=== PATIENT | female | born 1960 | race Caucasian/White ===

== ENCOUNTER 2017-06-18 17:22 | Emergency (ER) | payer BC ==
[2017-06-18] MEDS ORDERED: HYDROmorphone 0.5 MG/0.5 ML Syringe IVPUSH ONE (17:33)
[2017-06-18] MEDS ORDERED: Metoclopramide 10 MG/2 ML SDV IVPUSH ONE (17:33)
--- NOTE | 2017-06-18 17:34 | EDM.PDOC ---
ED HPI GENERAL MEDICAL PROBLEM - General Chief Complaint: Trauma Stated Complaint: [facility] Time Seen by Provider: 06/18/17 17:29 Source of Information: Reports: Patient, EMS Notes Reviewed History Limitations: Reports: No Limitations - History of Present Illness INITIAL COMMENTS - FREE TEXT/NARRATIVE: 57-year-old female reports that she was up on top of a ladder 6 or 7 feet off the ground when she fell from the ladder. She scraped up her left medial arm on the way to the ground on a branch of the tree. Landed hard on her legs injuring her left ankle and right tib-fib knee area. Unable to weight-bear. She was on the ground for good hour before anybody found her. Paramedics have started an IV and given her 1 mg of Dilaudid en route to the hospital. She denies losing consciousness and has no pain in her head or neck. Denies any pain in her back or hip or pelvis. She has pain to the medial aspect of her left forearm where she scraped it on the branch on the way down. Severe pain right knee proximal tib-fib left ankle. She believes her tetanus toxoid is good until 2018. Onset: Today Onset Date: 06/18/17 Onset Time: 15:45 Duration: Minutes: Location: Reports: Upper Extremity, Left, Lower Extremity, Left (Primarily left ankle), Lower Extremity, Right (Right tib-fib and knee area primarily) Quality: Reports: Ache, Burning, Throbbing Severity: Moderate Improves with: Reports: None Worsens with: Reports: Movement (Particularly of the right leg.) Context: Reports: Trauma Associated Symptoms: Reports: No Other Symptoms. 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) (Did receive Dilaudid 1 mg IV by paramedics staff en route to the hospital.) Right Knee Pain Score (Numeric/FACES): 8 Left Ankle Pain Score (Numeric/FACES): 2 - Related Data Allergies Allergy/AdvReac Type Severity Reaction Status Date / Time No Known Allergies Allergy Verified 06/18/17 17:37 Home Meds: Home Meds Escitalopram Oxalate [Escitalopram Oxalate] 10 mg PO DAILY 06/18/17 [History] Past Medical History Psychiatric History: Reports: Anxiety, Depression Social & Family History - Living Situation & Occupation Living situation: Reports: Occupation: Employed Review of Systems - Review of Systems Review Of Systems: See Below Constitutional: Reports: No Symptoms Eyes: Reports: No Symptoms Ears: Reports: No Symptoms Nose: Reports: No Symptoms Mouth/Throat: Reports: No Symptoms, Other Respiratory: Reports: Other. Denies: Shortness of Breath (Denies any dental injuries.) Cardiovascular: Reports: No Symptoms (Denies any chest pain) GI/Abdominal: Reports: No Symptoms Genitourinary: Reports: Other (Currently does not have to void) Musculoskeletal: Reports: Arm Pain (Left medial arm pain where she scraped against the tree branches.), Leg Pain (Right and left leg and ankle pain.). Denies: Back Pain Skin: Reports: Other Neurological: Reports: No Symptoms (Abrasions to the left arm.) Psychiatric: Reports: No Symptoms ED EXAM, GENERAL - Physical Exam Exam: See Below Exam Limited By: No Limitations General Appearance: Alert, WD/WN, Anxious (In obvious pain and discomfort.), Moderate Distress Eye Exam: Bilateral Eye: Normal Inspection Throat/Mouth: Normal Inspection, Normal Lips, Normal Teeth, Normal Oropharynx Head: Atraumatic, Normocephalic Neck: Normal Inspection, Supple, Non-Tender, Full Range of Motion. No: Lymphadenopathy (L), Lymphadenopathy (R) Respiratory/Chest: No Respiratory Distress, Lungs Clear, Normal Breath Sounds, No Accessory Muscle Use, Other (No pain on compression of her ribs or sternum.) Cardiovascular: Normal Peripheral Pulses, Regular Rate, Rhythm, No Edema, No Murmur, Tachycardia Peripheral Pulses: 2+: Posterior Tibial (L), Posterior Tibial (R), Dorsalis Pedis (L), Dorsalis Pedis (R) GI/Abdominal: Normal Bowel Sounds, Soft, Non-Tender, No Organomegaly, No Abnormal Bruit, No Mass, Other (No evidence of abdominal injuries or abdominal wall contusions.) Back Exam: Normal Inspection, Other (No pain on palpation of the thoracic and lumbar spine. Pelvis appears to be intact.). No: CVA Tenderness (L), CVA Tenderness (R), Vertebral Tenderness (No pain to palpation of the thoracic or lumbar spinous processes down to her sacrum. Complains of pain in her but talks but I have not been able to visualize them yet.) Extremities: Other (Pain left lateral ankle and foot. Bruising swelling and ecchymoses proximal right tib-fib and knee injuries to the left medial arm or scrapes and contusions from axilla to elbow. Clinically no fracture of the humerus evident. Has swelling lateral aspect of the left ankle but pretty good range of motion I don't think he'll be a fracture here.) Neurological: Alert, Oriented, CN II-XII Intact, Normal Cognition, Normal Reflexes, No Motor/Sensory Deficits Psychiatric: Normal Affect, Normal Mood, Anxious Skin Exam: Warm, Normal Color, Other (Multiple abrasions to the left medial arm. ) Course - Vital Signs Last Recorded V/S: Last Vital Signs Temp 36.8 C 06/18/17 17:38 Pulse 71 06/18/17 17:38 Resp BP 116/97 H 06/18/17 17:38 Pulse Ox 100 06/18/17 17:38 - Orders/Labs/Meds Orders: Active Orders 24 hr Category Date Time Status Rob Bandage [RC] ONETIME Care 06/18/17 18:44 Active Ankle Min 3V Lt [CR] Stat Exams 06/18/17 17:32 Taken Ankle Min 3V Rt [CR] Stat Exams 06/18/17 17:32 Taken Humerus Lt [CR] Stat Exams 06/18/17 17:32 Taken Knee wo Cont Rt [CT] Stat Exams 06/18/17 18:42 Ordered Pelvis 1V or 2V [CR] Stat Exams 06/18/17 17:30 Taken Tibia Fibula Lt [CR] Stat Exams 06/18/17 17:35 Ordered Tibia Fibula Rt [CR] Stat Exams 06/18/17 17:30 Taken CBC WITH MANUAL DIFF [HEME] Stat Lab 06/18/17 19:22 Received COMPREHENSIVE METABOLIC PN,CMP [CHEM] Stat Lab 06/18/17 19:22 Received INR,PT,PROTHROMBIN TIME [COAG] Stat Lab 06/18/17 19:22 Received PTT,PARTIAL THROMBOPLSTIN TIME [COAG] Stat Lab 06/18/17 19:22 Received Sodium Chloride 0.9% [Normal Saline] 1,000 ml Med 06/18/17 17:45 Active IV ASDIRECTED Medication Orders Sodium Chloride (Normal Saline) 1,000 mls @ 150 mls/hr IV ASDIRECTED LUL Last Admin: 06/18/17 17:40 Dose: 150 mls/hr Meds: Medications Generic Name Dose Route Start Last Admin Trade Name Freq PRN Reason Stop Dose Admin Sodium Chloride 1,000 mls @ 150 mls/hr 06/18/17 17:45 06/18/17 17:40 Normal Saline IV 150 mls/hr ASDIRECTED LUL Administration Discontinued Medications Generic Name Dose Route Start Last Admin Trade Name Trev PRN Reason Stop Dose Admin Hydromorphone HCl 0.5 mg 06/18/17 17:33 06/18/17 17:41 Dilaudid IVPUSH 06/18/17 17:34 0.5 mg ONETIME ONE Administration Metoclopramide HCl 7.5 mg 06/18/17 17:33 06/18/17 17:40 Reglan IVPUSH 06/18/17 17:34 10 mg ONETIME ONE Administration - Radiology Interpretation Free Text/Narrative:: 57-year-old female arrives in the ED after falling from a ladder proximal be 6 or 7 feet off the ground. She scraped up the medial aspect of her left arm on the way down on a tree branch. She landed hard on her feet injuring her left ankle and tib-fib knee area on the right side. 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 Denies any pain in her lumbar spine thoracic spine head neck chest or ribs and none was found on palpation. Plan x-ray pelvis .x-ray right tib-fib and ankle x-ray .Left ankle and tib-fib. We'll give her Dilaudid 0.5 mg IV for further pain relief and Reglan 7.5 mg IV for nausea relief. - Re-Assessments/Exams Free Text/Narrative Re-Assessment/Exam: 06/18/17 18:43 I palpated the left ankle and she does not have pain at the tip of the lateral malleolus. Therefore I believe avulsed fragment at distal tip of malleolus is old. She has pretty good range of motion of the ankle and minimal pain medial ankle. Is developing some ecchymoses over the dorsal lateral foot. X-ray of the tib-fib on that side is normal. Rob wrap will be applied to the ankle. Pelvis films are normal. X-rays of the right tib-fib reveal a comminuted fracture of the proximal tibia and suspect fracture of the fibular head. The right ankle is normal. Plan CT of the right need to be done. She will likely require transfer to [place] for definitive orthopedic surgical management. 06/18/17: 19:45: CT scan of the knee confirms bilateral comminuted fracture of the tibial plateau. I spoke with Dr. Tolentino our orthopedic surgeon and he felt it was far too complicated for facility to care for. He recommended [facility] in [place] for management. 06/18/17 20:17 Care has been accepted by Dr. Inés Tran orthopedic surgeon at [facility] in [place]. Patient was transported to that institution per ground ambulance. A posterior Ortho-Glass splint was placed in position of comfort which is knee flexed at approximately 35. Departure - Departure Time of Disposition: 20:19 Disposition: DC/Tfer to Acute Hospital 02 Condition: Serious Clinical Impression: Closed bicondylar fracture of right tibial plateau Sprain of left ankle Qualifiers: Encounter type: initial encounter Involved ligament of ankle: calcaneofibular ligament Qualified Code(s): S93.412A - Sprain of calcaneofibular ligament of left ankle, initial encounter - Discharge Information Forms: ED Department Discharge Additional Instructions: Care has been accepted by Dr. inés pitt at . Patient be transferred to institution per ground ambulance. - My Orders Last 24 Hours: My Active Orders 06/18/17 17:30 Pelvis 1V or 2V [CR] Stat Tibia Fibula Rt [CR] Stat 06/18/17 17:32 Ankle Min 3V Lt [CR] Stat Ankle Min 3V Rt [CR] Stat Humerus Lt [CR] Stat 06/18/17 17:35 Tibia Fibula Lt [CR] Stat 06/18/17 17:45 Sodium Chloride 0.9% [Normal Saline] 1,000 ml IV ASDIRECTED 06/18/17 18:42 Knee wo Cont Rt [CT] Stat 06/18/17 18:44 Rob Bandage [RC] ONETIME 06/18/17 19:22 CBC WITH MANUAL DIFF [HEME] Stat COMPREHENSIVE METABOLIC PN,CMP [CHEM] Stat INR,PT,PROTHROMBIN TIME [COAG] Stat PTT,PARTIAL THROMBOPLSTIN TIME [COAG] Stat - Assessment/Plan Last 24 Hours: My Active Orders 06/18/17 17:30 Pelvis 1V or 2V [CR] Stat Tibia Fibula Rt [CR] Stat 06/18/17 17:32 Ankle Min 3V Lt [CR] Stat Ankle Min 3V Rt [CR] Stat Humerus Lt [CR] Stat 06/18/17 17:35 Tibia Fibula Lt [CR] Stat 06/18/17 17:45 Sodium Chloride 0.9% [Normal Saline] 1,000 ml IV ASDIRECTED 06/18/17 18:42 Knee wo Cont Rt [CT] Stat 06/18/17 18:44 Rob Bandage [RC] ONETIME 06/18/17 19:22 CBC WITH MANUAL DIFF [HEME] Stat COMPREHENSIVE METABOLIC PN,CMP [CHEM] Stat INR,PT,PROTHROMBIN TIME [COAG] Stat PTT,PARTIAL THROMBOPLSTIN TIME [COAG] Stat
[2017-06-18] MEDS ORDERED: Sodium Chloride 0.9% 1,000 ML IV SCH (17:45)
[2017-06-18 20:56] VITALS: BP 118/65
--- NOTE | 2017-06-19 07:17 | CR ---
Right tibia and fibula: AP and lateral views of the right tibia and fibula were obtained. Comparison: No prior study. Comminuted fracture is identified within the proximal tibia involving the tibial plateau both medial and laterally. Displacement of fracture fragments are noted. Nondisplaced fracture is suggested to the fibular head. Diffuse soft tissue swelling is noted. Impression: 1. Comminuted and displaced tibial plateau fracture and possible nondisplaced fibular head fracture. 2. Soft tissue swelling. Diagnostic code #3
--- NOTE | 2017-06-19 07:17 | CR ---
Pelvis: AP view of the pelvis was obtained. Comparison: No previous study. Joint spaces within both hips are maintained. Sacroiliac joints are within normal limits. No fracture or other bony abnormality is seen. Slight irregularity is seen off the inferior right pubic ramus which appears to be old. Impression: 1. Nothing acute is identified on AP pelvis study. Diagnostic code #2
--- NOTE | 2017-06-19 07:17 | CR ---
Left tibia and fibula: AP and lateral views of the left tibia and fibula were obtained. No fracture or other bony abnormality is identified. Soft tissue swelling is noted at the ankle. Impression: 1. Soft tissue swelling. No bony abnormality is appreciated on two-view left tibia and fibula study. Diagnostic code #2
--- NOTE | 2017-06-19 07:17 | CR ---
Right ankle: Four views of the right ankle were obtained. Comparison: No previous right ankle study. Small plantar spur is seen. Ankle mortise is symmetric. No acute fracture, dislocation or other bony abnormality is seen. Impression: 1. Small plantar spur. 2. No additional abnormality is identified on right ankle exam. Diagnostic code #2
--- NOTE | 2017-06-19 07:17 | CR ---
Left ankle: Four views of the left ankle were obtained. Comparison: No previous radiograph study, previous MRI left ankle study of 03/30/14. Plantar spur is seen. Ankle mortise is symmetric. Detached bony density is identified off the inferior tip of the fibula which most likely is due to old injury. No acute fracture is definitely appreciated. Soft tissue swelling is present. Impression: 1. Bony density off the inferior tip of the fibula most likely due to old injury. 2. Soft tissue swelling and other incidental findings. Diagnostic code #2
--- NOTE | 2017-06-19 07:17 | CR ---
Left humerus: Two views of the left humerus were obtained. No fracture or other bony abnormality is identified. Impression: 1. No abnormality is seen on two-view left humerus study. Diagnostic code #1
--- NOTE | 2017-06-19 07:41 | CT ---
CT right knee Technique: Multiple axial sections through the right knee were obtained. Reconstructed coronal and sagittal images were reviewed. Comparison: Previous plain film study performed earlier on the same day (5:56 PM ). Findings: Comminuted fracture is identified within the proximal tibia. Fracture involves both medial and lateral tibial plateau. Greatest displacement is of the lateral tibial plateau with rotation and inferior displacement of fracture fragment. Inferior displacement of this fracture fragment is seen measuring approximately 7 mm. Fracture extends into to the medial malleolus which shows articular step-off of about 2 mm. Minimally displaced fibular head fracture is seen. Diffuse soft tissue swelling is identified. Impression: 1. Comminuted tibial plateau fracture. Findings are worst within the lateral tibial plateau with depressed fragment as described above. Minimally displaced medial tibial plateau fracture. 2. Slightly displaced fibular head fracture. Diagnostic code #5 Agree with preliminary report issued by [facility] ([facility] preliminary report dictated on 06/18/17, 8:39 PM Central Time) [facility]
== END 2017-06-18 20:43 ==
LOC: JD.ED 17:22
DX: S82.141A Displaced bicondylar fracture of right tibia, initial encounter for closed fracture (principal); S93.412A Sprain of calcaneofibular ligament of left ankle, initial encounter; F32.9 Major depressive disorder, single episode, unspecified; Z79.899 Other long term (current) drug therapy; W11.XXXA Fall on and from ladder, initial encounter
CPT/HCPCS: 29505; 36415; 72170; 73060; 73590; 73610; 73700; 80053; 85025; 85610; 85730; 96361; 96374; 96375; 99285; J1170; J2765; J7040